=== PATIENT | male | born 1970 | race Caucasian/White ===

== ENCOUNTER 2020-01-01 13:43 | Outpatient (CLI) | payer OTHER | END 2020-01-01 15:00 | disposition home or self-care (01) | LOC: LAB 13:43 | DX: J11.1 Influenza due to unidentified influenza virus with other respiratory manifestations (principal); J06.9 Acute upper respiratory infection, unspecified; R05 Cough ==

== ENCOUNTER → 2020-01-01 | Emergency (ER) | payer OTHER ==
[~2020-01-01] VITALS: Ht 172.7 cm; Wt 70.8 kg
== END | disposition left against medical advice (07) ==
LOC: ER 16:42
DX: Z53.20 Procedure and treatment not carried out because of patient's decision for unspecified reasons (principal)